=== PATIENT | male | born 1945 | race Caucasian/White ===

== ENCOUNTER → 2020-09-01 | Outpatient (CLI) | payer MEDICARE ==
[~2020-09-01] MED LIST: ASPI-630 PO; ATOR10TA60 PO; CALC-104 PO; GARL100T2 PO; LISI10TA16 PO; MELA10CA PO; METO-239 PO; NITR0.4T22 SL; PSYLLIUM PO; TOLT4CAP PO; UBID10CA5 PO; [UNRECOGNIZED DRUG - CODE] PO
== END ==
LOC: LAB 09:54
PROVIDERS: ATTEND Surgery
DX: Z01.812 Encounter for preprocedural laboratory examination (principal); K40.90 Unilateral inguinal hernia, without obstruction or gangrene, not specified as recurrent; Z20.822 Contact with and (suspected) exposure to COVID-19
CPT/HCPCS: U0003; U0005

== ENCOUNTER 2020-09-04 06:36 | Day surgery (SDC) | payer MEDICARE ==
[~2020-09-04] VITALS: Ht 167.6 cm; Wt 75.0 kg
[~2020-09-04 06:36] MED LIST changes: +HYDROmorphone 2 MG/ML VIAL IVP PRN; +IV RINGERS,LACTATED 1000ML 1,000 ML IV SCH; +PROCHLORPERAZINE 10 MG/2 ML VIAL. IVP PRN; +ceFAZolin SODIUM IV Push 1 GM VIAL. IVP PRN; +fentaNYL PF VIAL 100 MCG/2 ML VIAL IVP PRN
[2020-09-04] MEDS ORDERED: ACETAMINOPHEN 500 MG TABLET PO ONE (07:00)
[2020-09-04] MEDS ORDERED: BUPIVACAINE-EPI 0.25% 30 ML VIAL KIT. ONE (07:03)
[2020-09-04] MEDS ORDERED: PROPOFOL 10 MG/ML (20ML) VIAL. IV ONE (07:06)
[2020-09-04] MEDS ORDERED: LIDOCAINE 2% PF 5 ML VIAL. ONE (07:06)
[2020-09-04] MEDS ORDERED: ROCURONIUM 50 MG/5 ML VIAL. ONE (07:06)
--- NOTE | 2020-09-04 07:38 | PDOC1 ---
History and Physical Date of Admission Date of Admission DATE: 09/04/20 TIME: 07:34 Identification/Chief Complaint Chief Complaint Right groin pain Source Source: Patient History of Present Illness History of Present Illness 74-year-old male with 1 month history of right groin pain and a bulge in this area he noticed after moving some heavy furniture. Patient does have a significant heart history sees cardiology had a stress test in April which was normal stents placed in January 2020 Past Medical History Cardiovascular: CAD, HTN Pulmonary: No pertinent hx GI: Other (Colon cancer) Heme/Onc: No pertinent hx Hepatobiliary: No pertinent hx Psych: No pertinent hx Infectious disease: No pertinent hx ENT: No pertinent hx Renal/: Other (Prostate cancer) Endocrine: No pertinent hx Dermatology: No pertinent hx Past Surgical History Past Surgical History: Colectomy, Other (Prostatectomy cardiac stents placed) Family History Family History: No Significant Social History Smoke: No ALCOHOL: none Drugs: None Current Medications Current Medications Current Medications Fentanyl Citrate (Fentanyl 2ml Vial) 25 mcg PRN Q5MIN PRN IVP MILD PAIN 1-3; Start 09/04/20 at 06:00; Stop 09/04/20 at 20:00 Fentanyl Citrate (Fentanyl 2ml Vial) 50 mcg PRN Q5MIN PRN IVP MODERATE PAIN 4- 6; Start 09/04/20 at 06:00; Stop 09/04/20 at 20:00 Morphine Sulfate (Morphine Sulfate) 1 mg PRN Q10MIN PRN IVP SEVERE PAIN 7-10; Start 09/04/20 at 06:00; Stop 09/04/20 at 20:00 Ringer's Solution 1,000 ml @ 30 mls/hr Q24H IV Last administered on 09/04/20at 07:04; Start 09/04/20 at 06:00; Stop 09/04/20 at 17:59 Hydromorphone HCl (Dilaudid) 0.5 mg PRN Q10MIN PRN IVP SEVERE PAIN 7-10, 2nd CHOICE; Start 09/04/20 at 06:00; Stop 09/04/20 at 20:00 Prochlorperazine Edisylate (Compazine) 5 mg PACU PRN PRN IVP NAUSEA, MRX1; Start 09/04/20 at 06:00; Stop 09/04/20 at 20:00 Cefazolin Sodium (Ancef) 1 gm 1X PREOP PRN IVP PRIOR TO PROCEDURE; Start 09/03/20 at 16:30 Acetaminophen (Tylenol) 1,000 mg 1X ONCE PO Last administered on 09/04/20at 07:04; Start 09/04/20 at 07:00; Stop 09/04/20 at 07:01; Status DC Bupivacaine HCl/ Epinephrine Bitart (Sensorcain-Epi 0.25% Kit) 30 ml STK-MED ONCE .ROUTE ; Start 09/04/20 at 07:03; Stop 09/04/20 at 07:03; Status DC Propofol (Diprivan) 200 mg STK-MED ONCE IV ; Start 09/04/20 at 07:06; Stop 09/04/20 at 07:06; Status DC Lidocaine HCl (Lidocaine Pf 2% Vial) 5 ml STK-MED ONCE .ROUTE ; Start 09/04/20 at 07:06; Stop 09/04/20 at 07:06; Status DC Rocuronium [place] (Zemuron) 50 mg STK-MED ONCE .ROUTE ; Start 09/04/20 at 07:06; Stop 09/04/20 at 07:06; Status DC Active Scripts Active Reported Detrol La (Tolterodine Tartrate) 4 Mg Cap.er.24h 1 Cap PO DAILY [psyllium daily] PO DAILY [place]-3 Fish Oil 1,000 Mg Sfgl ([place]-3/Dha/Epa/Fish Oil) 1,000 Mg Capsule 1,000 Mg PO DAILY NITROGLYCERIN SubLingual (Nitroglycerin) 0.4 Mg Tab.subl 0.4 Mg SL PRN Q5MIN PRN Melatonin 10 Mg Capsule 1 Cap PO QHS 30 Days Odor Free Garlic (Garlic) 100 Mg Tablet 100 Mg PO DAILY Co Q-10 (Ubidecarenone) 10 Mg Capsule 1 Cap PO DAILY 30 Days Citracal + D Maximum Caplet (Calcium Citrate/Vitamin D3) 1 Each Tablet 1 Each PO DAILY Aspirin 81 Mg Tab.chew 1 Tab PO DAILY Metoprolol Succinate ( Xl ) (Metoprolol Succinate) 25 Mg Tab.er.24h 1 Tab PO DAILYWSUP Atorvastatin Calcium 10 Mg Tablet 1 Tab PO QHS Lisinopril 10 Mg Tablet 1 Tab PO DAILY Allergies Allergies: Coded Allergies: No Known Drug Allergies (Unverified , 09/04/20) ROS Genitourinary: YES Other (Groin pain) Physical Exam General: Alert, Oriented X3, Cooperative, No acute distress HEENT: Atraumatic, EOMI Lungs: Clear to auscultation, Normal air movement Heart: RRR, no murmurs Abdomen: Normal bowel sounds, Soft, No tenderness Male Genitals Exam: other (Right groin pain with bulge consistent with hernia) Extremities: No edema Skin: No significant lesion Neuro: Normal speech Psych/Mental Status: Mental status NL Vitals Vitals Vital Signs Date Time Temp Pulse Resp B/P (MAP) Pulse Ox O2 Delivery O2 Flow Rate FiO2 09/04/20 07:00 97.1 70 20 98 97.1 09/04/20 06:54 160/72 Room Air VTE Prophylaxis Ordered VTE Prophylaxis Devices: Yes VTE Pharmacological Prophylaxi: Contraindicated Assessment/Plan Assessment/Plan Right inguinal hernia plan repair open Justifications for Admission Other Justification LAURA RUIZ MD Sep 04, 2020 07:38
[2020-09-04] MEDS ORDERED: SEVOFLURANE 61 TO 120 MINUTES. IH ONE (07:40)
[2020-09-04] MEDS ORDERED: fentaNYL PF VIAL 100 MCG/2 ML VIAL ONE ×2 (07:41→08:01)
[2020-09-04] MEDS ORDERED: DEXAMETHASONE SOD PHOS 4 MG/ML VIAL ONE (07:48)
[2020-09-04] MEDS ORDERED: ONDANSETRON PF 4 MG/2 ML VIAL. ONE (07:48)
[2020-09-04] MEDS ORDERED: NEOSTIGMINE METHYLSULFATE 5 MG/5 ML SYRINGE. ONE (07:52)
[2020-09-04] MEDS ORDERED: GLYCOPYRROLATE 1 MG/5 ML VIAL. ONE (07:52)
--- NOTE | 2020-09-04 08:23 | PDOC4 ---
Operative Note Operative Note Date: September 042020 at 821 Preoperative diagnosis: Right inguinal hernia Postoperative diagnosis: Same Procedure: Right inguinal hernia repair with mesh Surgeon: Erasmo Specimen: None Dictation: Patient is a 74-year-old male with complaints of groin pain and a bulge in his right groin consistent with a hernia. Procedure of right inguinal hernia repair with mesh was explained to the patient detail risk benefits were also discussed including bleeding infection alternatives to this procedure also discussed with patient who seemed to understand and gave a verbal written co nsent to have the procedure performed. Patient was taken to the operating room placed in supine position general anesthesia was initiated once patient was sleeping intubated is right groin was prepped and draped usual sterile fashion using ChloraPrep. An area over the inguinal canal was injected quarter percent Marcaine with epinephrine incision made with a 10 blade scalpel is carried down through the subcutaneous tissue using electrocautery right hemostasis to the anterior fascia which was partially open with 15 blade scalpel and further opened Metzenbaum scissors exposing the inguinal contents the cord structures were encircled with a [place] drain the hernia sac was dissected free from its adherent tissues and inverted a mesh plug was then placed within the defect and a mesh overlay was placed on the floor the inguinal canal this was sewn into place with a running 3-0 Prolene. The structures of the inguinal canal were returned and the anterior fascia was then closed with a running 0 Vicryl. The deep subcutaneous layer was closed with running 3-0 Vicryl the skin was reapproximated for subcuticular Monocryl Mastisol Steri-Strips and island dressings were applied. Patient was awakened and extubated in the operating room taken to recovery in stable condition all sponge instrument needle counts listed as correct estimated blood loss 5 mL LAURA RUIZ MD Sep 04, 2020 08:23
--- NOTE | 2020-09-04 08:25 | DISCH ---
DISCHARGE INSTRUCTIONS Condition on Discharge Condition on Discharge: Stable Activity After Discharge Activity Instructions for Disc: Avoid exertion Other activity instructions: No lifting more than 20 pounds for 4 weeks Diet after Discharge Diet after Discharge: Regular Wound Incision Care Other wound/incision instructi: Oly shower in 24 hours Contacting the DRTeo after DC Call your doctor for: If your condition worsens Follow-Up Follow up with: Dr. Ruiz in 2 weeks LAURA RUIZ MD Sep 04, 2020 08:25
[2020-09-04] MEDS ORDERED: OXYC1TAB15 PO (08:49)
[2020-09-04] MEDS ORDERED: oxyCODONE/APAP 5/325 1 TAB TABLET PO ONE ×2 (09:00)
[2020-09-04] MEDS ORDERED: MORPHINE SULFATE 2 MG/ML VIAL. ONE (09:07)
[2020-09-04] MEDS: MORPHINE SULFATE 2 MG/ML VIAL. IVP PRN ×2 (09:08→09:18)
[2020-09-04 09:35] VITALS: BP 156/74
== END 2020-09-04 10:00 | disposition home or self-care (01) ==
LOC: SURG 06:36
PROVIDERS: ATTEND Surgery
DX: K40.90 Unilateral inguinal hernia, without obstruction or gangrene, not specified as recurrent (principal); I25.10 Atherosclerotic heart disease of native coronary artery without angina pectoris; E78.00 Pure hypercholesterolemia, unspecified; I10 Essential (primary) hypertension; Z87.891 Personal history of nicotine dependence; Z79.82 Long term (current) use of aspirin; Z79.899 Other long term (current) drug therapy; Z98.890 Other specified postprocedural states; Z72.89 Other problems related to lifestyle
CPT/HCPCS: 49505; A4364; A4930; A6402; C1781; J0690; J1100; J2270; J2405; J2704; J2710; J3010; J3490; A4452